=== PATIENT | male | born 1935 | race Caucasian/White ===

== ENCOUNTER 2016-04-23 15:06 | Inpatient (IN) | payer OTHER ==
[2016-04-23 15:18] VITALS: BMI 33.3
[2016-04-23] MEDS ORDERED: ALBUTEROL SO4 2.5/IPRATROPIUM 0.5 INH SOL 3 ML VIAL.NEB. NEB ONE ×2 (15:48→19:25)
[2016-04-23] MEDS ORDERED: predniSONE 20 MG TABLET (UD) PO ONE (15:53)
--- NOTE | 2016-04-23 15:54 | PDOC ---
History of Present Illness <Alfredo Garber - Last Filed: 04/23/16 16:02> - History of Present Illness Initial Comments: 04/23/16 16:44 Patient is a 80 year old male with a significant PMHx of CAD s/p 7 stents, diastolic CHF, HTN, HLD, DM, ESRD on dialysis, Gout, and Asthma who presents was brought to the ED from Dr. Tobin's office for Progressive shortness of breath on exertion and orthopnea that worsened in the last three days. Patient reports for the last three days he's had increasing cough with thick yellow sputum associated with chills and body aches. Patient also reports his shortness of breath has worsened to the point where he would find himself catching his breath after a few steps. When sleeping he uses three pillows and reports episodes of chest tightness. He denies abdominal pain, nausea, vomiting, diarrhea He denies palpitations, dizziness, loss of consciousness He denies dysuria, hematuria, frequency PMHx: CAD s/p 7 stents, diastolic CHF, HTN, HLD, DM, ESRD on dialysis, Gout, and Asthma PSHx: Right shoulder rotator cuff surgery, Right knee arthroscopy, 7 cardiac stents MEDS: Refer to ambulatory list Allergies: NKDA Social: Occasional alcohol, denies ever smoking or drugs PCP: Dr. Tobin Overhead Crane Inspector: Dr. Ritchie Space Technologist: Dr. Gonzalez <Mica Brooks - Last Filed: 04/23/16 19:17> - General Chief Complaint: Chest Pain Stated Complaint: CHEST PAIN, SOB (PCP SENT) Time Seen by Provider: 04/23/16 15:21 Past History <Alfredo Garber - Last Filed: 04/23/16 16:02> - Past Medical History Anemia: Yes (IRON DEFICIENCY ANEMIA) Asthma: Yes Cancer: No Cardiac Disorders: Yes (stents, acs) CVA: No COPD: Yes CHF: No Dementia: No Diabetes: Yes Dialysis: Yes (T- SAT) GI Disorders: Yes Disorders: Yes (acute kidney injury) HTN: Yes Hypercholesterolemia: Yes Liver Disease: No Suicide Attempt (Hx): No Seizures: No Thyroid Disease: No - Surgical History Abdominal Surgery: Yes Appendectomy: Yes Cardiac Surgery: Yes (CARDIAC STENTS- 7stents) Cholecystectomy: Yes Lung Surgery: No Neurologic Surgery: No Orthopedic Surgery: Yes (right rotator cuff,right knee replacement) - Immunization History Immunization Up to Date: Yes - Psycho/Social/Smoking Cessation Hx Anxiety: No Suicidal Ideation: No Smoking Status: No Smoking History: Never smoked Have you smoked in the past 12 months: No Number of Cigarettes Smoked Daily: 0 Hx Alcohol Use: No Drug/Substance Use Hx: No Substance Use Type: None Hx Substance Use Treatment: No <Mica Brooks - Last Filed: 04/23/16 19:17> - Past Medical History Allergies/Adverse Reactions: Allergies Allergy/AdvReac Type Severity Reaction Status Date / Time No Known Allergies Allergy Verified 04/23/16 15:14 Home Medications: Ambulatory Orders Aspirin [ASA -] 81 mg PO DAILY 11/27/13 Atorvastatin Ca [Lipitor] 80 mg PO HS 11/27/13 Carvedilol [Coreg] 25 mg PO BID 11/27/13 Ferrous Sulfate [Feosol] 325 mg PO DAILY 11/27/13 Furosemide [Lasix -] 40 mg PO DAILY 11/27/13 Isosorbide Mononitrate [Isosorbide Mononitrate ER] 30 mg PO DAILY 11/27/13 Insulin Aspart [Novolog] 0 unit SQ AC 12/20/13 Alfuzosin HCl [Alfuzosin HCl ER] 10 mg PO DAILY 05/12/14 Allopurinol [Zyloprim -] 100 mg PO DAILY 05/12/14 Clopidogrel Bisulfate [Clopidogrel] 75 mg PO DAILY 02/23/15 Colchicine [Mitigare] 0.6 mg PO DAILY PRN 02/23/15 Folic Acid/Vitamin B Comp W-C [Melanie-Anastasia Tablet] 0.8 mg PO DAILY 02/23/15 Olmesartan Medoxomil [Benicar -] 5 mg PO DAILY 02/23/15 Sevelamer Carbonate [Renvela -] 800 mg PO DAILY 02/23/15 Albuterol Sulfate Inhaler - [Ventolin HFA Inhaler -] 2 inh PO Q4H PRN #1 inh 03/04 Salmeterol/Fluticasone [Advair 100Mcg/50Mcg -] 1 puff IH BID #1 inhaler Review of Systems - Review of Systems Constitutional: Yes: Chills. No: Diaphoresis, Fever HEENTM: Yes: Nose Congestion. No: Blurred Vision, Double Vision, Throat Pain, Throat Swelling, Difficulty Swallowing Respiratory: Yes: Cough, Orthopnea, Shortness of Breath, SOB with Exertion, Wheezing, Productive cough. No: Hemoptysis Cardiac (ROS): Yes: Chest Tightness. No: Chest Pain, Edema, Irregular Heart Rate, Lightheadedness, Palpitations, Syncope ABD/GI: No: Diarrhea, Nausea, Vomiting, Abdominal cramping : No: Burning, Dysuria, Discharge, Frequency Musculoskeletal: No: Back Pain, Joint Pain Integumentary: No: Bruising, Erythema Neurological: No: Headache, Weakness Psychiatric: No: Anxiety, Depression Endocrine: No: Flushing, Intolerance to Cold, Intolerance to Heat Hematologic/Lymphatic: No: Anemia, Blood Clots <Mica Brooks - Last Filed: 04/23/16 19:17> *Physical Exam - Vital Signs Last Vital Signs Temp Pulse Resp BP Pulse Ox 98.9 F 94 H 20 116/69 95 04/23/16 15:08 04/23/16 15:08 04/23/16 15:08 04/23/16 15:08 04/23/16 15:08 <Alfredo Garber - Last Filed: 04/23/16 16:02> - Vital Signs Last Vital Signs Temp Pulse Resp BP Pulse Ox 98.9 F 94 H 20 116/69 95 04/23/16 15:08 04/23/16 15:08 04/23/16 15:08 04/23/16 15:08 04/23/16 15:08 - Physical Exam General Appearance: Yes: Other (Awake, alert, and oriented ) HEENT: positive: Normal ENT Inspection, Normal Voice, TMs Normal, Pharynx Normal Neck: positive: Trachea midline. negative: Carotid bruit, Lymphadenopathy (R) Respiratory/Chest: positive: Crackles (Bibasilar crackles throughout lung bases bilaterally ), Wheezing (throughout lung bases bilaterally ), Other Cardiovascular: positive: S1, S2, Tachycardia. negative: Edema, JVD Gastrointestinal/Abdominal: positive: Normal Bowel Sounds, Soft. negative: Decreased BS, Tenderness Musculoskeletal: positive: Normal Inspection Extremity: positive: Normal Inspection, Normal Range of Motion Integumentary: positive: Normal Color Neurologic: positive: Fully Oriented, Alert, Normal Mood/Affect, Normal Response , Motor Strength 5/5 <Mica Brooks - Last Filed: 04/23/16 19:17> Heart Score/ECG Review #1 ECG reviewed & interpreted by me at: 15:10 General ECG Interpretation: Sinus Rhythm, Normal Rate (95), Normal Intervals, No acute ischemic changes (Downsloping ST segment with T-wave inversion in the inferior leads and V5 V6, submillimeter ST elevation in aVR and V1, when compared to prior EKG performed on 02/24/15, these are unchanged.) <Alfredo Garber - Last Filed: 04/23/16 16:02> ED Treatment Course - LABORATORY CBC & Chemistry Diagram: 04/23/16 17:30 04/23/16 17:30 - RADIOLOGY Radiology Studies Ordered: Category Date Time Status CHEST X-RAY PORTABLE* [RAD] Stat Radiology 04/23/16 15:47 Ordered Chest X-Ray Result: CHF <Mica Brooks - Last Filed: 04/23/16 19:17> Medical Decision Making - Medical Decision Making 04/23/16 16:44 Patient is a 80 year old male with a PMHx of CAD s/p 7 stents, diastolic CHF, HTN, HLD, DM, ESRD on dialysis, Gout, and Asthma who was brought in by his PCP Dr. Tobin for progressive dyspnea and orthopnea that worsened in the last three days associated with chills, productive cough and body aches. Differential Diagnosis include but not limited to CHF exacerbation, ACS, Pneumonia, Influenza, PE, Asthma Exacerbation. ED Course and Treatment: -CBC -CMP -BNP -Cardiac profile/Troponin -EKG -Chest x-ray -U/A -Influenza Swab -Prednisone 60mg PO -Three amps of Duoneb 04/23/16 17:53 -Chest x-ray revealed cardiomegaly with mild pulmonary venous congestion -Rapid influenza negative -Troponin 3.50, Creatinine 9.9, Potassium 5.6 -Call out to Dr. Tobin who accepts patient to his services -Cardiology consult placed. 04/23/16 18:38 -Cardiology recommends Heparin drip, ASA 325, Metoprolol titrate 25mg PO for rhythm control -Call out to Nephrology 04/23/16 19:00 -Nephrology call back who recommend Lasix 40mg IVP -No need for dialysis. Will dialyze in the morning as scheduled <Mica Brooks - Last Filed: 04/23/16 19:17> *DC/Admit/Observation/Transfer <Alfredo Garber - Last Filed: 04/23/16 16:02> - Discharge Dispostion Admit: Yes <Mica Brooks - Last Filed: 04/23/16 19:17> Diagnosis at time of Disposition: ME, acute, non ST segment elevation Congestive heart failure Qualifiers: Congestive heart failure type: diastolic Congestive heart failure chronicity: acute on chronic Qualified Code(s): I50.33 - Acute on chronic diastolic ( congestive) heart failure
--- NOTE | 2016-04-23 16:33 | PDOC ---
Attending Attestation - Resident Resident Name: Mica Brooks - ED Attending Attestation I have performed the following: I have examined & evaluated the patient, The case was reviewed & discussed with the resident, I agree w/resident's findings & plan, Exceptions are as noted - HPI HPI: 04/23/16 16:31 80-year-old male with history of heart disease and end-stage renal on Thursday/ /Thursday dialysis presents from Dr. Tovar's office with progressive dyspnea on exertion, orthopnea, and chest pain over past 2-3 days. - Physicial Exam PE: 04/23/16 16:32 Vital signs as noted. No acute distress, seated comfortably in stretcher speaking full sentences Bibasilar crackles - Medical Decision Making 04/23/16 16:32 Patient seen and evaluated with the resident. I agree with the overall evaluation, assessment, and management with the following summary of visit: 80-year-old male with progressive dyspnea and chest pain, concerning for ACS versus CHF exacerbation. Less likely infectious, had dialysis yesterday, may require further volume extraction. Labs, EKG, chest x-ray Does not respond to diuretics No acute hypoxia or respiratory distress, will need admission for further cardiac monitoring and repeat dialysis as scheduled tomorrow
[2016-04-23] MEDS ORDERED: predniSONE 20 MG TABLET (UD) ONE (16:46)
[2016-04-23] MEDS ORDERED: ALBUTEROL SO4 0.083% IH SOL 2.5 MG/3 ML VIAL.NEB. NEB ONE (16:46)
[2016-04-23 17:41] LABS: BASOPHIL 0.9 % (0-2.0); EOSINOPHIL 2.4 % (0-4.5); MCH 30.1 pg (25.7-33.7); MCHC 31.5 g/dl (32.0-35.9); MEAN CELL VOLUME 95.7 fl (80-96); MEAN PLT VOLUME 8.7 fl (7.5-11.1); NEUTROPHILS 61.8 % (42.8-82.8); PLATELET COUNT 268 K/MM3 (134-434); RDW 17.4 % (11.9-15.9); WHITE BLOOD COUNT 9.7 K/mm3 (4.0-10.0)
[2016-04-23 17:58] LABS: INR 1.08 (0.82-1.09); PROTHROMBIN TIME (PATIENT) 11.9 SEC (9.98-11.88)
[2016-04-23 18:09] LABS: ALBUMIN 3.6 g/dl (3.4-5.0); BILIRUBIN,TOTAL 0.7 mg/dL (0.2-1.0); CALCIUM 8.1 mg/dL (8.5-10.1); MAGNESIUM 2.6 mg/dL (1.8-2.4); TOT PROT 7.7 g/dl (6.4-8.2)
[2016-04-23 18:30] LABS: CREATININE 9.9 mg/dL (0.7-1.3)
[2016-04-23] MEDS ORDERED: HEPARIN NA (PORCINE) 5,000 UNITS/ML 1ML VIAL IVPUSH ONE (18:59)
[2016-04-23] MEDS ORDERED: HEPARIN - 25,000 UNIT in SODIUM CHLORIDE 495 ML IV SCH (19:00)
[2016-04-23] MEDS ORDERED: METOPROLOL TARTRATE 25 MG TABLET (FP) PO ONE (19:01)
[2016-04-23] MEDS ORDERED: ASPIRIN 325 MG TABLET PO ONE (19:01)
[2016-04-23] MEDS ORDERED: FUROSEMIDE 40 MG/4 ML INJECTABLE VIAL IVPUSH ONE (19:06)
[2016-04-23] MEDS ORDERED: ASPIRIN 325 MG TABLET ONE (19:24)
[2016-04-23] MEDS ORDERED: FUROSEMIDE 40 MG/4 ML INJECTABLE VIAL ONE (19:25)
[2016-04-23] MEDS ORDERED: METOPROLOL TARTRATE 25 MG TABLET (FP) ONE (19:25)
[2016-04-23] MEDS ORDERED: HEPARIN INFUSION - 500 ML IVPB ONE (19:25)
[2016-04-23 19:29] LABS: TROPONIN I 3.5 ng/ml (0.00-0.05)
[2016-04-23] MEDS ORDERED: ACETAMINOPHEN 325 MG TABLET (FP) PO PRN (19:29)
[2016-04-23] MEDS ORDERED: HEPARIN NA (PORCINE) 5,000 UNITS/ML 1ML VIAL ONE (19:29)
[2016-04-23] MEDS ORDERED: NITROGLYCERIN 25MG/D5W 250ML 250 ML IVPB SCH (19:30)
--- NOTE | 2016-04-23 20:39 | CONSULT ---
Cardiology Consult (text) - Consultation Consultation Note: CC: NSTEMI 80 yo with known CAD (h/o NSTEMI and multiple PCI's last cath 09/2014 for angina ) with residual disease in RPDA, OM2 and LPL1, ischemic cardiomyopathy, HTN, HL , COPD, ESRD on HD, DM, gout, here with sob and elevated troponin. States progressive sob associated with palpitations (heart pounding/fast heart rate) over the past few months. Initially difficulty with ADL's and walking one block, now with symptoms walking from room to room. Symptoms respond to nitroglycerin, although he describes prior anginal symtpoms as cp and not sob. Also with recent orthopnea, abdominal distension and poor po intake. States he takes lasix on non-HD days, but makes minimal urine. He states that recently HD has been limited by hypotension (+ sx's of dizziness, fatigue). Also with three days of chills, malaise, flu-like symptoms. + cough. No le edema, bleeding, claudication or transient neurologic symptoms. No n/v/d, headache, rashes, visual disturbances, congestion. Past Surgical History: Yes: Appendectomy, Cholecystectomy, Joint Replacement ( knees), Stent (x7) Social hx: Never smoked, no etoh or illicts. Family Disease History: Heart Disease: Father, CA: Father, Respiratory: Mother ros per hpi - Allergies Allergies/Adverse Reactions: Allergies Allergy/AdvReac Type Severity Reaction Status Date / Time No Known Allergies Allergy Verified 05/12/14 16:44 Ambulatory Orders Aspirin [ASA -] 81 mg PO DAILY 11/27/13 Atorvastatin Ca [Lipitor] 80 mg PO HS 11/27/13 Carvedilol [Coreg] 25 mg PO BID 11/27/13 Ferrous Sulfate [Feosol] 325 mg PO DAILY 11/27/13 Furosemide [Lasix -] 40 mg PO DAILY 11/27/13 Isosorbide Mononitrate [Isosorbide Mononitrate ER] 30 mg PO DAILY 11/27/13 Insulin Aspart [Novolog] 0 unit SQ AC 12/20/13 Alfuzosin HCl [Alfuzosin HCl ER] 10 mg PO DAILY 05/12/14 Allopurinol [Zyloprim -] 100 mg PO DAILY 05/12/14 Clopidogrel Bisulfate [Clopidogrel] 75 mg PO DAILY 02/23/15 Colchicine [Mitigare] 0.6 mg PO DAILY PRN 02/23/15 Folic Acid/Vitamin B Comp W-C [Melanie-Anastasia Tablet] 0.8 mg PO DAILY 02/23/15 Olmesartan Medoxomil [Benicar -] 5 mg PO DAILY 02/23/15 Sevelamer Carbonate [Renvela -] 800 mg PO DAILY 02/23/15 Albuterol Sulfate Inhaler - [Ventolin HFA Inhaler -] 2 inh PO Q4H PRN #1 inh 03/04 Salmeterol/Fluticasone [Advair 100Mcg/50Mcg -] 1 puff IH BID #1 inhaler Current Medications Acetaminophen (Tylenol -) 650 mg PO Q4H PRN PRN Reason: FEVER OR PAIN Allopurinol (Zyloprim -) 100 mg PO DAILY [facility] Aspirin (Asa -) 81 mg PO DAILY [facility] Atorvastatin Calcium (Lipitor -) 80 mg PO HS [facility] Carvedilol (Coreg -) 25 mg PO BID [facility] Clopidogrel Bisulfate (Plavix -) 75 mg PO DAILY [facility] Ferrous Sulfate (Feosol -) 325 mg PO DAILY [facility] Furosemide (Lasix Injection -) 40 mg IVPB DAILY [facility] Heparin Sodium (Porcine) 25, (000 unit/ Sodium Chloride) 500 mls @ 20 mls/hr IV TITR MOI; 1,000 UNIT/HR PRN Reason: Protocol Nitroglycerin/Dextrose (Nitroglycerin 25mg/D5w 250ml) 250 mls @ 6 mls/hr IVPB TITR MOI PRN Reason: 10 MCG/MIN Insulin Aspart (Novolog Vial Sliding Scale -) 1 vial SQ ACHS MOI PRN Reason: Protocol Multivit/Ca Carb/B Cmplx/FA/Prenat (Nephro-Anastasia -) 1 tablet PO DAILY [facility] Fluticasone/Salmeterol (Advair 100mcg/50mcg -) 1 puff IH BID [facility] Sevelamer Carbonate (Renvela -) 800 mg PO DAILY@0800 [facility] Tamsulosin HCl (Flomax -) 0.4 mg PO DAILY@0830 [facility] Valsartan (Diovan -) 40 mg PO DAILY [facility] Vital Signs - 24 hr 04/23/16 04/23/16 04/23/16 15:08 17:44 18:34 Temperature 98.9 F Pulse Rate 94 H Pulse Rate [ 92 H 91 H Apical] Respiratory 20 16 18 Rate Blood Pressure 116/69 Blood Pressure 91/63 103/70 [Left] O2 Sat by Pulse 95 100 Oximetry (%) Constitutional: Yes: No Distress, Obese Eyes: No: Sclera Icterus HENT: No: Nasal Congestion Neck: No: Decreased ROM Respiratory: Yes: Diffuse crackles, wheezes. No: Accessory Muscle Use Gastrointestinal: Yes: Normal Bowel Sounds. No: Distention, Hepatomegaly, Palpable Mass, Tenderness Cardiovascular: Yes: Regular Rate and Rhythm JVD: yes Carotid Bruit: No PMI: Non-Displaced Heart Sounds: Yes: S1, S2. No: Gallop Murmur: No: Systolic Murmur, Diastolic Murmur Musculoskeletal: Yes: Other (No kyphosis) Extremities: No: Cold, Cyanosis Edema: No Peripheral Pulses: 2+ Left Carotid, 2+ Right Carotid, 2+ Left Doralis Pedis, 2+ Right Dorsalis Pedis Integumentary: No: Jaundice Neurological: Yes: Alert, Oriented (x3) Psychiatric: No: Agitated - Other Data Labs, Other Data: CBC, BMP 04/23/16 17:30 04/23/16 17:30 Laboratory Tests 04/23/16 17:30 Magnesium 2.6 H D Total Bilirubin 0.7 Creatine Kinase 290 D Creatine Kinase Index 1.9 CK-MB (CK-2) 5.478 H Troponin I 3.50 H* D Albumin 3.6 EKG: NSR with pacs, 95 bpm. AV delay. Nl axis/intervals. Inferior and lateral TWI (present on priors) with ST depressions in lateral leads (ischemia vs. strain pattern) tele: NSR, pacs CXR: mild pulmonary vascular congestion vs. interstitial infiltrates. Mibi 01/2016: Large inferior/inferoseptal scar with minimal jac-infarct ischemia in inferoseptal region. Small size, mild reversible defect of lateral wall at mid ventricle consistent with mild ischemia. Global hypokinesis worse in inferior segments. LVEF 35%. Echo 02/2015: Mildly reduced lvef. Nl RV. Mild-mod MR, mild tr, mod phtn. CAD - EKG with ischemia vs. strain pattern. CE's elevated. Would treat as NSTEMI. Recommend initiation of heparin drip, ASA, plavix, statin. Short acting metoprolol to bring HR down closer to 60-70 as long as blood pressure allows. Touch base with nephrology regarding hyperkalemia, need for extra dialysis as patient appears volume overloaded. - Patient free of dyspnea on evaluation. Although, not prior anginal symptoms would consider as anginal equivalent if it recurs. - Con't to trend enzymes. - telemetry monitoring. - Will plan for transfer for cath tomorrow, but will need to coordinate around dialysis. NPO past midnight. ischemic cardiomyopathy - off arb due to low bp's. On low dose carvedilol. Would switch to short acting metoprolol to allow more bp room. - Unclear if sob is anginal equivalent or from volume overload. Patient with cardiac wheezing on exam. CXR consistent with congestion. Unknown if low bp's have been limiting full HD sessions. Volume management per nephrololgy. May need dialysis prior to cath, will assess cardiac enzyme trend in morning. If flat trend may be able to dialyze prior to cath. - consider repeat echo to assess severity of lv dysfunction (EF on recent mibi lower than prior echo measurements) HTN - currently low normal bp's. caution with metoprolol HL - con't statin. COPD - mgm't of possible contribution of COPD vs. viral illness per pmd.
[2016-04-23] MEDS ORDERED: NOREPINEPHRINE BITARTRATE 4 MG/4 ML ML IV ONE (21:43)
[2016-04-23] MEDS ORDERED: MAGNESIUM SULF 50% (8.12 MEQ/2 ML-1 GM VIAL) ONE (21:45)
[2016-04-23] MEDS ORDERED: ATORVASTATIN CA 80 MG TABLET (FP) PO SCH (22:00)
[2016-04-23] MEDS ORDERED: CARVEDILOL 25 MG TABLET (FP) PO SCH (22:00)
[2016-04-23] MEDS ORDERED: INSULIN SLIDING SCALE (NOVOLOG) 1 VIAL SQ SCH (22:00)
[2016-04-23] MEDS ORDERED: FLUTICASONE/SALMETEROL 100 MCG/50 MCG DISKUS IH SCH (22:00)
--- NOTE | 2016-04-23 22:08 | PDOC ---
*Physical Exam - Vital Signs Last Vital Signs Temp Pulse Resp BP Pulse Ox 98.9 F 91 H 18 103/70 100 04/23/16 15:08 04/23/16 18:34 04/23/16 18:34 04/23/16 18:34 04/23/16 18:34 ED Treatment Course - LABORATORY CBC & Chemistry Diagram: 04/23/16 17:30 04/23/16 17:30 - ADDITIONAL ORDERS Additional order review: Laboratory Results 04/23/16 04/23/16 04/23/16 17:30 17:30 17:30 INR Sodium 134 L Potassium 5.6 H D Chloride 92 L Carbon Dioxide 26 Anion Gap 16 BUN 38 H D Creatinine 9.9 H* D Creat Clearance w eGFR 5.11 Random Glucose 182 H D Calcium 8.1 L Magnesium 2.6 H D Total Bilirubin 0.7 AST 21 D ALT 23 Alkaline Phosphatase 73 Creatine Kinase 290 D Creatine Kinase Index 1.9 CK-MB (CK-2) 5.478 H CK-MB (CK-2) Rel Index Cancelled Troponin I 3.50 H* D B-Natriuretic Peptide 33020.02 H Total Protein 7.7 Albumin 3.6 04/23/16 17:30 INR 1.08 Sodium Potassium Chloride Carbon Dioxide Anion Gap BUN Creatinine Creat Clearance w eGFR Random Glucose Calcium Magnesium Total Bilirubin AST ALT Alkaline Phosphatase Creatine Kinase Creatine Kinase Index CK-MB (CK-2) CK-MB (CK-2) Rel Index Troponin I B-Natriuretic Peptide Total Protein Albumin 04/23/16 17:30 Influenza Types A,B Antigen (SUKI) - Final Nasopharyngeal Swab - Final 04/23/16 17:30 RBC 4.07 MCV 95.7 MCHC 31.5 L RDW 17.4 H D MPV 8.7 Neutrophils % 61.8 Lymphocytes % 16.1 D Monocytes % 18.8 H Eosinophils % 2.4 D Basophils % 0.9 - RADIOLOGY Chest X-Ray Result: CHF - Medications Given in the ED: ED Medications Discontinued Medications Generic Name Dose Route Start Last Admin Trade Name Freq PRN Reason Stop Dose Admin Albuterol/Ipratropium 3 amp 04/23/16 15:48 04/23/16 16:46 Duoneb - NEB 04/23/16 15:49 3 amp ONCE ONE Administration Prednisone 60 mg 04/23/16 15:53 04/23/16 16:47 Deltasone - PO 04/23/16 15:54 60 mg ONCE ONE Administration Medical Decision Making - Critical Care Time Total Critical Care Time (minutes): 35 Critical Care Statement: The care of this patient involved high complexity decision making to prevent further life threatening deterioration of the patient 's condition and/or to evalute & treat vital organ system(s) failure or risk of failure. - Medical Decision Making 04/23/16 22:04 Was alerted by the RN as patient suddenly complained about shortness of breath and feeling ill at about 9:10 pm. The RN had alerted me immediately and I had went to the patient's bedside. The patient was noted to be speaking but overall very ill and weak. ECG was obtained immediatley and noted to have ectopical atrial rhythm, STD V4-V6, and QSTE aVF concerning for worsening ND and possibly STEMI. While the crash cart and material was obtained at the bedside, the patient's rhythm suddenly deteriorated into asytole and the patient was started with high quality CPR at 9:18 pm. The patient underwent ACLS protocol. Pt was intubated by me with a glycdeoscope with a 6.5 and placed at 23. Chords visualized by me. There was some rhythms where patient was pulseless vtach and the patient was defibrillated several times without ROSC. Pt was given epinephrine, calcium, sodium bicarb, magnesium, lidocaine and amiodarone without success. Eventually, the rhythm deteriorated into asystole. Bedside echocardiogram demonstrated no cardiac activity. The patient was pronounced at 9:54 pm by me. Will contact the medical records receptionist. The patient's was immediately called but not given specific details. I had requested that the come into the hospital for the news. 04/23/16 22:58 Case discussed with ME Manrique. Case rejected. at bedside. She is informed of the patient's . *DC/Admit/Observation/Transfer Diagnosis at time of Disposition: ND, acute, non ST segment elevation CHF (congestive heart failure) Qualifiers: Congestive heart failure type: diastolic Congestive heart failure chronicity: acute on chronic Qualified Code(s): I50.33 - Acute on chronic diastolic ( congestive) heart failure - Discharge Dispostion Disposition: Condition at time of disposition: Decision to Admit order Date/Time: Decision to Admit Order Category Date Time Status Decision to Admit to Hospital Routine Phy Order 04/23/16 19:25 Ordered
[2016-04-23 22:18] LABS: TROPONIN I 3.33 ng/ml (0.00-0.05)
[2016-04-23 23:29] VITALS: BP 108/80; PULSE 101; TEMP 98.3
[2016-04-24] MEDS ORDERED: SEVELAMER CARBONATE 800 MG TAB (FP) PO SCH (08:00)
[2016-04-24] MEDS ORDERED: TAMSULOSIN HCL 0.4 MG CAP.ER.24H (FP) PO SCH (08:30)
[2016-04-24] MEDS ORDERED: ISOSORBIDE MONONITRATE 30 MG TAB.SR.24H (FP) PO SCH (10:00)
[2016-04-24] MEDS ORDERED: FERROUS SO4 325 MG TABLET (FP) PO SCH (10:00)
[2016-04-24] MEDS ORDERED: ALLOPURINOL 100 MG TABLET (FP) PO SCH (10:00)
[2016-04-24] MEDS ORDERED: ASPIRIN 81 MG CHEWABLE TABLETS PO SCH ×2 (10:00)
[2016-04-24] MEDS ORDERED: CLOPIDOGREL BISULFATE 75 MG TABLET (FP) PO SCH (10:00)
[2016-04-24] MEDS ORDERED: VALSARTAN 40 MG TABLET (FP) PO SCH (10:00)
[2016-04-24] MEDS ORDERED: VITAMIN B COMP W-C 1 EA TABLET PO SCH (10:00)
[2016-04-24] MEDS ORDERED: FUROSEMIDE 40 MG TABLET (FP) PO SCH (10:00)
[2016-04-24] MEDS ORDERED: FUROSEMIDE 40 MG/4 ML INJECTABLE VIAL IVPB SCH (10:00)
--- NOTE | 2016-04-24 16:33 | EKG ---
Test Reason : Blood Pressure : / mmHG Vent. Rate : 088 BPM Atrial Rate : 088 BPM P-R Int : 218 ms QRS Dur : 112 ms QT Int : 360 ms P-R-T Axes : 061 075 249 degrees QTc Int : 435 ms SINUS RHYTHM WITH 1ST DEGREE A-V BLOCK ABNORMAL ECG WHEN COMPARED WITH ECG OF 23-APR-2016 15:10, PREMATURE ATRIAL COMPLEXES ARE NO LONGER PRESENT Confirmed by KEERTHI ANN, AMADEO ([id number]) on 04/24/2016 4:33:06 PM Referred By: Confirmed By:AMADEO PENDLETON MD
--- NOTE | 2016-04-25 11:20 | EKG ---
Test Reason : Blood Pressure : / mmHG Vent. Rate : 095 BPM Atrial Rate : 095 BPM P-R Int : 212 ms QRS Dur : 108 ms QT Int : 354 ms P-R-T Axes : 058 065 263 degrees QTc Int : 444 ms SINUS RHYTHM WITH 1ST DEGREE A-V BLOCK WITH PREMATURE ATRIAL COMPLEXES ABNORMAL ECG Confirmed by TERRA THORNTON MD ([id number]) on 04/25/2016 11:20:43 AM Referred By: Confirmed By:TERRA THORNTON MD
--- NOTE | 2016-04-25 11:21 | EKG ---
Test Reason : Blood Pressure : / mmHG Vent. Rate : 066 BPM Atrial Rate : 066 BPM P-R Int : 218 ms QRS Dur : 134 ms QT Int : 418 ms P-R-T Axes : -63 106 -88 degrees QTc Int : 438 ms UNUSUAL P AXIS, POSSIBLE ECTOPIC ATRIAL RHYTHM RIGHTWARD AXIS NON-SPECIFIC INTRA-VENTRICULAR CONDUCTION BLOCK CANNOT RULE OUT INFERIOR INFARCT , AGE UNDETERMINED ST DEPRESSION IN V3-V6, clinical correlation required NONSPECIFIC T WAVE ABNORMALITY ABNORMAL ECG Confirmed by TERRA THORNTON MD ([id number]) on 04/25/2016 11:21:50 AM Referred By: Confirmed By:TERRA THORNTON MD
== END 2016-04-23 21:20 | disposition expired | DRG 291 ==
LOC: JER 15:06 → JERBED 19:37
PROVIDERS: ADMIT Family Medicine; ATTEND Family Medicine
PROC: 5A12012 Performance of Cardiac Output, Single, Manual (ICD-10-PCS; principal; 2016-04-23)
PROC: 0BH17EZ Insertion of Endotracheal Airway into Trachea, Via Natural or Artificial Opening (ICD-10-PCS; 2016-04-23)
DX: I13.2 Hypertensive heart and chronic kidney disease with heart failure and with stage 5 chronic kidney disease, or end stage renal disease (principal); N18.6 End stage renal disease; I50.33 Acute on chronic diastolic (congestive) heart failure; I47.2 Ventricular tachycardia; I25.10 Atherosclerotic heart disease of native coronary artery without angina pectoris; E78.5 Hyperlipidemia, unspecified; E11.9 Type 2 diabetes mellitus without complications; M10.9 Gout, unspecified; J45.909 Unspecified asthma, uncomplicated; I25.2 Old myocardial infarction; I25.5 Ischemic cardiomyopathy
CPT/HCPCS: 36415; 71010-TC; 80053; 82550; 82553; 83735; 83880; 84484; 85025; 85610; 87254; 87804; 93005; 93010; 99284-25; J1644